=== PATIENT | male | born 1985 | race Caucasian/White ===

== ENCOUNTER 2022-08-19 11:11 | Outpatient (CLI) | payer OTHER | END 2022-08-19 11:30 | disposition home or self-care (01) | LOC: SONOGRAMA 11:11 | PROVIDERS: ATTEND Internal Medicine Endocrinology, Diabetes & Metabolism | DX: E04.8 Other specified nontoxic goiter (principal) ==

== ENCOUNTER → 2022-08-28 07:48 | Outpatient (CLI) | payer OTHER | END | disposition home or self-care (01) | LOC: LAB 07:48 | PROVIDERS: ATTEND Internal Medicine Endocrinology, Diabetes & Metabolism | DX: E03.8 Other specified hypothyroidism (principal); E78.00 Pure hypercholesterolemia, unspecified; E11.65 Type 2 diabetes mellitus with hyperglycemia ==

== ENCOUNTER 2022-11-20 08:32 | Emergency (ER) | payer OTHER ==
[~2022-11-20] VITALS: Ht 185.4 cm; Wt 93.0 kg
[2022-11-20] MEDS ORDERED: SYNTHROID100 MCG PO (08:39)
[2022-11-20] MEDS ORDERED: LIPITOR40 M1 PO (08:39)
[2022-11-20] MEDS ORDERED: CEFADROXIL500 MG PO (10:13)
== END 2022-11-20 10:28 | disposition home or self-care (01) ==
LOC: ER 08:32
DX: R07.0 Pain in throat (principal); Z20.822 Contact with and (suspected) exposure to COVID-19

== ENCOUNTER 2022-12-18 08:41 | Outpatient (CLI) | payer OTHER ==
[~2022-12-18 08:41] MED LIST: CEFADROXIL500 MG PO; LIPITOR40 M1 PO; SYNTHROID100 MCG PO
== END 2022-12-18 08:47 | disposition home or self-care (01) ==
LOC: SONOGRAMA 08:41
PROVIDERS: ATTEND Internal Medicine Gastroenterology
DX: R10.9 Unspecified abdominal pain (principal)

== ENCOUNTER 2022-12-30 10:49 | Outpatient (CLI) | payer OTHER | END 2022-12-30 11:07 | disposition home or self-care (01) | LOC: MRI 10:49 → RAD 10:49 → MRI 11:07 | PROVIDERS: ATTEND General Practice | DX: M54.59 Other low back pain (principal); M54.16 Radiculopathy, lumbar region | CPT/HCPCS: 72148 ==

== ENCOUNTER 2023-01-17 08:00 | Outpatient (CLI) | payer OTHER | END 2023-01-17 08:10 | disposition home or self-care (01) | LOC: PPH VACUNA 08:00 | PROVIDERS: ATTEND Emergency Medicine Pediatric Emergency Medicine | DX: Z23 Encounter for immunization (principal) ==

== ENCOUNTER 2023-01-17 15:08 | Outpatient (CLI) | payer OTHER | END 2023-01-17 15:46 | disposition home or self-care (01) | LOC: RAD 15:08 | DX: M54.2 Cervicalgia (principal) ==

== ENCOUNTER → 2023-02-25 07:51 | Outpatient (CLI) | payer OTHER ==
[2023-02-25 08:22] LABS: PH,URINE 5.5 (5.0-8.0); URINE APPEARANCE Clear; URINE BILIRRUBIN Negative (NEGATIVE); URINE BLOOD Trace; URINE COLOR Yellow; URINE GLUCOSE Negative (NEGATIVE); URINE LEUKOCYTE Negative; URINE NITRATE Negative; URINE PROTEIN Negative (NEGATIVE)
[2023-02-25 08:24] LABS: URINE EPITHELIAL CELLS 2.7 uL (0.0-38.8); URINE RBC 11.7 uL (0.0-20.8); URINE WBC 4.4 uL (0.0-23.2)
[2023-02-25 09:40] LABS: ALBUMIN 3.9 gm/dL (3.4-5.0); BILIRUBIN TOTAL 0.44 mg/dL (0.3-1.2); CALCIUM 8.8 mg/dL (8.5-10.1); CHOL HDL RATIO 4.3 (0-5.0); GFR 84.08; GLOBULINA 3.7 G/DL (2.4-3.5); POTASSIUM 4.64 mEq/L (3.5-5.1); T4 FREE 0.95 NG/ML (0.76-1.46); TOTAL PROTEIN 7.6 gm/dL (6.4-8.2); TSH 0.906 uIU/mL (0.358-3.74)
== END | disposition home or self-care (01) ==
LOC: LAB 07:51
DX: N39.0 Urinary tract infection, site not specified (principal); E78.00 Pure hypercholesterolemia, unspecified

== ENCOUNTER 2023-07-29 08:07 | Outpatient (CLI) | payer OTHER ==
[2023-07-29 08:39] LABS: PH,URINE 6.5 (5.0-8.0); URINE APPEARANCE Clear; URINE BILIRRUBIN Negative (NEGATIVE); URINE BLOOD Negative; URINE COLOR Yellow; URINE GLUCOSE Negative (NEGATIVE); URINE LEUKOCYTE Negative; URINE NITRATE Negative; URINE PROTEIN Negative (NEGATIVE)
[2023-07-29 08:42] LABS: URINE RBC 26.7 uL (0.0-20.8); URINE WBC 4.9 uL (0.0-23.2)
[2023-07-29 08:55] LABS: URINE EPITHELIAL CELLS 0.3 uL (0.0-38.8)
[2023-07-29 08:57] LABS: HEMATOCRIT 42.4 % (39.0-48.0); HEMOGLOBIN 14.8 g/dL (13-16.00); MEAN CELL VOLUME 89.5 fL (80.0-100.00); MEAN CORPUSCULAR HEMOGLOBIN 31.2 pg (27.00-32.0); MEAN CORPUSCULAR HGB CONC 34.8 g/dl (32.0-36.0); PLATELET COUNT 378 K/uL (150-450); RED BLOOD COUNT 4.74 M/uL (4.00-6.00); RED CELL DISTRIBUTION WIDTH 13.1 % (11.5-14.5)
== END 2023-07-29 17:37 | disposition home or self-care (01) ==
LOC: LAB 08:07
DX: R30.0 Dysuria (principal); R50.9 Fever, unspecified; N42.9 Disorder of prostate, unspecified